=== PATIENT | male | born 1990 | race Caucasian/White ===

== ENCOUNTER 2018-05-02 20:30 | Emergency (ER) | payer SELFPAY ==
[~2018-05-02] VITALS: Ht 177.8 cm; Wt 110.0 kg
[2018-05-02 20:46] VITALS: RESP 16; O2SAT 96
[2018-05-02 20:50] VITALS: BP 145/99; PULSE 130; RESP 20; TEMP 98; O2SAT 96
[2018-05-02] MEDS ORDERED: SODIUM CHLOR 0.9% 1000 ML INJ 1,000 ML IV ONE (21:15)
--- NOTE | 2018-05-02 21:29 | RADRPT ---
EXAM DATE: 05/02/2018 8:57 PM EDT AGE/SEX: 27 years / Male INDICATIONS: Shortness of breath. CLINICAL DATA: This is the patient's initial encounter. Patient reports that signs and symptoms have been present for 1 day and indicates a pain score of Nonresponsive. MEDICAL/SURGICAL HISTORY: Non-responsive. Non-responsive. COMPARISON: No prior exams available for comparison. FINDINGS: A single AP view of the chest demonstrates the lungs to be symmetrically aerated without evidence of mass, infiltrate or effusion. The cardiomediastinal contours are unremarkable. Osseous structures a re intact. CONCLUSION: Exam degraded by motion. No acute findings. Electronically signed by: Brandon Jain MD 05/02/2018 9:27 PM EDT
[2018-05-02 21:34] LABS: AUTOMATED NEUTROPHIL # 5.6 TH/MM3 (1.8-7.7); BASOPHIL # 0.1 TH/MM3 (0-0.2); BASOPHIL % 0.5 % (0.0-2.0); EOSINOPHIL % 0.5 % (0.0-4.0); HEMOGLOBIN 14.8 GM/DL (13.0-17.0); LYMPH % 37.5 % (9.0-44.0); LYMPHOCYTE # 3.7 TH/MM3 (1.0-4.8); MEAN CELL VOLUME 88.3 FL (80.0-100.0); MEAN CORPUSCULAR HEMOGLOBIN 30.4 PG (27.0-34.0); MEAN CORPUSCULAR HGB CONC 34.5 % (32.0-36.0); MEAN PLATELET VOLUME 7.2 FL (7.0-11.0); MONO % 4.6 % (0.0-8.0); MONOCYTE # 0.5 TH/MM3 (0-0.9); NEUT % 56.9 % (16.0-70.0); PLATELET COUNT 369 TH/MM3 (150-450); RED BLOOD COUNT 4.87 MIL/MM3 (4.50-5.90); RED CELL DISTRIBUTION WIDTH 12.7 % (11.6-17.2); WHITE BLOOD COUNT 9.9 TH/MM3 (4.0-11.0)
[2018-05-02 21:58] LABS: ALT (GPT) 37 U/L (12-78)
[2018-05-02 22:16] LABS: ALBUMIN 4.2 GM/DL (3.4-5.0); ALKALINE PHOSPHATASE 48 U/L (45-117); AST (GOT) 35 U/L (15-37); BICARBONATE 20.2 MEQ/L (21.0-32.0); BLOOD UREA NITROGEN 11 MG/DL (7-18); CALCIUM 8.3 MG/DL (8.5-10.1); CHLORIDE 107 MEQ/L (98-107); CREATININE 1.36 MG/DL (0.60-1.30); GLOMERULAR FILTRATION RATE 62 ML/MIN (>89); GLUCOSE,RANDOM 108 MG/DL (74-106); SODIUM (NA) 142 MEQ/L (136-145); TOTAL BILIRUBIN ADULT 0.4 MG/DL (0.2-1.0); TOTAL PROTEIN 7.8 GM/DL (6.4-8.2)
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
[2018-05-02] MEDS ORDERED: ONDANSETRON ODT 4 MG TAB PO ONE (23:15)
--- NOTE | 2018-05-02 23:26 | RADRPT ---
EXAM DATE: 05/02/2018 11:18 PM EDT AGE/SEX: 27 years / Male INDICATIONS: Trauma, possible seizure. CLINICAL DATA: This is the patient's initial encounter. Patient reports that signs and symptoms have been present for 1 day and indicates a pain score of 5/10. MEDICAL/SURGICAL HISTORY: None. . RADIATION DOSE: 56.35 CTDI (mGy) COMPARISON: No prior exams available for comparison. TECHNIQUE: CT of the head without contrast. Using automated exposure control and adjustment of the mA and/or kV according to patient size, radiation dose was kept as low as reasonably achievable to ob tain optimal diagnostic quality images. FINDINGS: Slight motion artifact. Cerebrum: The ventricles are normal for age. No evidence of midline shift, mass lesion, hemorrhage or acute infarction. No extraaxial fluid collections are seen. Posterior Fossa: The cerebellum and brainstem are intact. The 4th ventricle is midline. The cerebe llopontine angle is unremarkable. Extracranial: The visualized portion of the orbits is intact. Skull: The calvaria is intact. No evidence of skull fracture. CONCLUSION: 1. No acute intracranial abnormality. Electronically signed by: Jorden Martinez MD 05/02/2018 11:24 PM EDT
--- NOTE | 2018-05-02 23:27 | RADRPT ---
EXAM DATE: 05/02/2018 11:19 PM EDT AGE/SEX: 27 years / Male INDICATIONS: Trauma, fall. CLINICAL DATA: This is the patient's initial encounter. Patient reports that signs and symptoms have been present for 1 day and indicates a pain score of 5/10. MEDICAL/SURGICAL HISTORY: None. . RADIATION DOSE: 20.51 CTDI (mGy) COMPARISON: No prior exams available for comparison. TECHNIQUE: Contiguous axial images were obtained using helical multirow detector technique. The vol umetric data was post-processed with multiplanar reconstruction in oblique axial, sagittal, and coron al planes. Using automated exposure control and adjustment of the mA and/or kV according to patient s ize, radiation dose was kept as low as reasonably achievable to obtain optimal diagnostic quality sid ges. FINDINGS: Vertebrae: Normal vertebral body height. Alignment: Normal. No subluxation. C2-3: The bony spinal canal is normal in size. No evidence of disc bulge or herniation. The neural foramina are bilaterally patent. C3-4: The bony spinal canal is normal in size. No evidence of disc bulge or herniation. The neural foramina are bilaterally patent. C4-5: The bony spinal canal is normal in size. No evidence of disc bulge or herniation. The neural foramina are bilaterally patent. C5-6: The bony spinal canal is normal in size. No evidence of disc bulge or herniation. The neural foramina are bilaterally patent. C6-7: The bony spinal canal is normal in size. No evidence of disc bulge or herniation. The neural foramina are bilaterally patent. C7-T1: The bony spinal canal is normal in size. No evidence of disc bulge or herniation. The neura l foramina are bilaterally patent. CONCLUSION: 1. No fracture or subluxation Electronically signed by: Jorden Martinez MD 05/02/2018 11:26 PM EDT
[2018-05-02 23:28] LABS: BILIRUBIN, URINE NEG (NEG); BLOOD, URINE NEG (NEG); GLUCOSE,URINE NEG (NEG); HYALINE CAST, URINE 16 /lpf (RARE); KETONE, URINE NEG (NEG); MUCUS URINE FEW /lpf (OCC); NITRITE,URINE NEG (NEG); URINE COLOR Straw (YELLW/STRAW); URINE LEUKOCYTE ESTERASE NEG (NEG)
[2018-05-03] MEDS ORDERED: TETANUS/DIPHTHERIA TOXOID ADULT 0.5 ML VIAL IM ONE
--- NOTE | 2018-05-03 12:41 | EKG ---
Date Performed: 05/02/2018 Time Performed: 19:42:47 PTAGE: 27 years EKG: SINUS TACHYCARDIA NONSPECIFIC T-WAVE ABNORMALITY ABNORMAL RHYTHM ECG NO PREVIOUS TRACING DOCTOR: Eddie Denton Interpretating Date/Time 05/03/2018 12:38:03
== END 2018-05-03 00:16 ==
LOC: NEPE 20:30
DX: F10.129 Alcohol abuse with intoxication, unspecified (principal); S09.90XA Unspecified injury of head, initial encounter; S31.139A Puncture wound of abdominal wall without foreign body, unspecified quadrant without penetration into peritoneal cavity, initial encounter; B19.20 Unspecified viral hepatitis C without hepatic coma; R00.0 Tachycardia, unspecified; R56.9 Unspecified convulsions; Y35.893A Legal intervention involving other specified means, suspect injured, initial encounter; Y90.8 Blood alcohol level of 240 mg/100 ml or more
CPT/HCPCS: 70450; 71045; 72125; 80053; 80074; 80307; 81001; 82550; 85025; 87389; 93005; 96360; 99285; J7030; G0475